=== PATIENT | female | born 1970 | race Caucasian/White ===

== ENCOUNTER 2016-09-26 16:36 | Emergency (ER) | payer BC ==
[~2016-09-26] VITALS: Ht 152.4 cm; Wt 52.2 kg
[2016-09-26 16:58] VITALS: BP 130/64
[2016-09-26] MEDS ORDERED: KETOROLAC 60 MG/2 ML VIAL IM SCH (18:05)
[2016-09-26 18:32] VITALS: BP 130/64
== END 2016-09-26 18:32 | disposition home or self-care (01) ==
LOC: MED 16:36
DX: S52.501A Unspecified fracture of the lower end of right radius, initial encounter for closed fracture (principal); W06.XXXA Fall from bed, initial encounter; Y93.89 Activity, other specified; Y92.89 Other specified places as the place of occurrence of the external cause; Y99.8 Other external cause status
CPT/HCPCS: 29125; 73110; 96372; 99284; J1885